=== PATIENT | female | born 1965 | race Hispanic/Latino ===

== ENCOUNTER 2018-06-20 13:26 | Outpatient (CLI) | payer OTHER ==
--- NOTE | 2018-06-20 14:20 | RAD ---
LEFT HIP TWO VIEWS: History: Fall. Left hip injury. FINDINGS: Mild joint space narrowing and osteophytosis. Femoral head contour is maintained. No acute fracture, dislocation, or aggressive osseous erosions. IMPRESSION: Mild osteoarthritis left hip. POS: [facility]
--- NOTE | 2018-06-20 14:23 | RAD ---
AP PELVIS ONE VIEW: History: Fall. Hip pain. FINDINGS/IMPRESSION: Sacral ala and pelvic rings are intact. No displaced fractures. There is articulation of an enlarged left L5 transverse process with the upper sacrum, sometimes a ca use of chronic low back pain on that side. POS: [facility]ET
--- NOTE | 2018-06-20 14:39 | RAD ---
LUMBAR SPINE 3 VIEWS: Date: 06/20/18 HISTORY: Fall with injury to low back. Low back pain. COMPARISON: 01/30/15. FINDINGS: In the AP view, there is a slight curvature of the lumbar spine to the left. Moderate degenerative ch anges are noted with anterior and lateral osteophytes from the lumbar vertebra. These are most promin ent laterally on the right at L1-2. On the lateral view, the lumbar vertebra maintain height. Slight posterolisthesis at L2-3 and L3-4 again noted, stable from the prior exam. Minimal anterolisthesis at L5-S1 is stable. Disc spaces are maintained and appear stable in appearance. There is facet hypertro phy at L3-4, L4-5, and L5-S1. 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 IMPRESSION: There are degenerative changes of the lumbar spine as described, which do not appear significantly ch anged from the prior exam. The osteophytes may be minimally more prominent today. 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 POS: [facility]
== END 2018-06-20 13:27 | disposition home or self-care (01) ==
LOC: MADRAD 13:26
PROVIDERS: ATTEND Family Medicine
DX: M25.552 Pain in left hip (principal); M54.5 Low back pain; M47.896 Other spondylosis, lumbar region; M25.78 Osteophyte, vertebrae; M16.12 Unilateral primary osteoarthritis, left hip; W19.XXXA Unspecified fall, initial encounter
CPT/HCPCS: 72100; 72170

== ENCOUNTER 2021-05-20 13:27 | Emergency (ER) | payer OTHER ==
[2021-05-20] MEDS ORDERED: Boostrix 0.5 ML (Tdap) VIAL ONE (13:44)
[2021-05-21 00:38] LABS: HIV (1/2) Antibody/Antigen Non-Reactive (NonReactive); HIV 1/2 INDEX 0.09 S/CO (<1.00); Hep C IgG Ab Non-Reactive (NonReactive); Hep C Index 0.06 S/CO (0-0.79)
[2021-05-21 00:45] LABS: HBSAB Concentration 56.02 mIU/mL; Hep B Surf AB Reactive (NonReactive)
== END 2021-05-20 13:55 | disposition home or self-care (01) ==
LOC: MADERS 13:27
DX: Z77.21 Contact with and (suspected) exposure to potentially hazardous body fluids (principal); J45.909 Unspecified asthma, uncomplicated; I10 Essential (primary) hypertension
CPT/HCPCS: 36415; 86706; 86803; 87389; 90471; 90715

== ENCOUNTER 2021-07-06 05:21 | Outpatient (CLI) | payer OTHER ==
[2021-07-06 06:28] LABS: SARS-CoV-2 NAA Rapid Test Not Detected (NotDetected)
== END 2021-07-06 05:22 | disposition home or self-care (01) ==
LOC: MADLAB 05:21
PROVIDERS: ATTEND Family Medicine
DX: Z20.822 Contact with and (suspected) exposure to COVID-19 (principal)
CPT/HCPCS: U0002

== ENCOUNTER 2021-07-08 00:32 | Inpatient (IN) | payer OTHER ==
[2021-07-08] MEDS ORDERED: methylPREDNISolone Sod Succ/PF 125 MG/2 ML VIAL ONE (01:16)
[2021-07-08 01:21] LABS: #Basophils 0.1 thou/uL (0.0-0.2); #Eosinphils 0.4 thou/uL (0.0-0.7); #Lymphocytes 1.6 thou/uL (1.20-3.40); #Monocytes 0.6 thou/uL (0.11-0.59); #Neutrophils 10.4 thou/uL (1.40-6.50); %Basophils 0.6 % (0.0-1.0); %Eosinophils 2.8 % (0.0-10.0); %Monocytes 4.5 % (0.0-10.0); %Neutrophils 80.1 % (42.0-75.0); Hemoglobin 13.3 g/dL (12.0-16.0); Mean Corpuscular HGB CONC 31.3 g/dL (32.0-36.0); Mean Corpuscular Hemoglobin 29.2 pg (27.0-31.0); Mean Corpuscular Volume 93.3 fL (78.0-98.0); Mean Platelet Volume 7.5 fL (7.4-10.4); Platelet Count 302 thou/uL (130-400); RBC Distribution Width 11.2 % (11.5-14.5); Red Blood Cell (RBC) Count 4.57 mill/uL (4.20-5.40)
[2021-07-08 02:29] LABS: Bilirubin Negative (Negative); Blood, Urine Trace (Negative); Clarity Clear (Clear); Glucose, Urine (Dipstick) Negative (Negative); Ketone, Urine Negative (Negative); Leukocyte Negative (Negative); Nitrite Negative (Negative); Protein, Urine (Dipstick) Negative (Neg-Trace); Urobilinogen 0.2 mg/dL (Less than 2); pH, Urine 6.5 (5.0-9.0)
[2021-07-08] MEDS ORDERED: Magnesium 2 GM/50 ML BAG (IN WATER) ONE (03:11)
[2021-07-08 03:15] LABS: RBC/HPF None Seen HPF (0-3); Squamous Epithelial 0-3 HPF (0-3); WBC/HPF None Seen HPF (0-3)
[2021-07-08 03:16] LABS: Bacteria/HPF None Seen HPF (None Seen)
[2021-07-08 03:32] LABS: ALT (SGPT) 32 U/L (8-55); AST (SGOT) 18 U/L (5-34); Albumin 4.1 g/dL (3.5-5.0); Alkaline Phosphatase 162 U/L (40-110); Anion Gap 14 mmol/L (10-20); BUN (Urea Nitrogen) 14 mg/dL (9.8-20.1); Bilirubin, Total 0.2 mg/dL (0.2-1.2); Calc. Creatinine Clearance 0 mL/min (70-130); Calcium 9.9 mg/dL (7.8-10.44); Carbon Dioxide 27 mmol/L (22-29); Chloride 103 mmol/L (98-107); Globulin 2.6 g/dL (2.4-3.5); Glucose 114 mg/dL (70-105); Potassium 3.4 mmol/L (3.5-5.1); Protein, Total 6.7 g/dL (6.0-8.3); Sodium 141 mmol/L (136-145)
[2021-07-08] MEDS ORDERED: cefTRIAXone\\ROCEPHIN 2 GM VIAL ONE (03:45)
[2021-07-08] MEDS ORDERED: Sodium Chloride 0.9% 100 ML ONE (03:45)
[2021-07-08] MEDS ORDERED: Sodium Chloride 0.9% 250 ML 250 ML ONE (04:02)
[2021-07-08] MEDS ORDERED: Azithromycin 500 MG VIAL ONE (04:02)
[2021-07-08 04:23] LABS: SARS-CoV-2 NAA Rapid Test Not Detected (NotDetected)
[2021-07-08] MEDS ORDERED: Enoxaparin Sodium 40 MG/0.4 ML SYRINGE ONE (04:40)
[2021-07-08] MEDS ORDERED: Oxymetazoline HCl 0.05% (30 ML BOT) ONE (05:29)
[2021-07-08] MEDS ORDERED: Albuterol Sulfate 2.5 mg/3 ml Neb ONE (05:29)
[2021-07-08 06:14] VITALS: BMI 39.9
[2021-07-08] MEDS ORDERED: Acetaminophen 325 MG TAB PO PRN (07:08)
[2021-07-08] MEDS ORDERED: Ondansetron ODT 4 MG TAB PO PRN (07:08)
[2021-07-08] MEDS ORDERED: Calcium Carbonate 500 MG ChewTAB PO PRN (07:09)
[2021-07-08] MEDS ORDERED: Non-Formulary Item 1 EACH (Albuterol Sulfate [Proair Hfa] 8.5 GM Hfa.Aer.Ad) INH PRN (07:28)
[2021-07-08] MEDS ORDERED: Albuterol 200 PUFF (6.7GM INHALER) INH PRN (07:37)
[2021-07-08] MEDS: buPROPion 75 MG TAB PO SCH (08:23)
[2021-07-08] MEDS: Enoxaparin Sodium 40 MG/0.4 ML SYRINGE SC SCH (08:23)
[2021-07-08] MEDS: Hydrochlorothiazide 25 MG TAB PO SCH (08:24)
[2021-07-08] MEDS: Acetaminophen/Codeine 30-300mg Tablet PO PRN ×2 (08:25→20:08)
[2021-07-08] MEDS: Benzonatate 100 MG CAP PO PRN ×2 (08:25→19:16)
[2021-07-08] MEDS: Loratadine 10 MG TAB PO SCH (08:26)
[2021-07-08] MEDS: ALPRAZolam 0.5 MG TAB PO PRN (08:27)
[2021-07-08] MEDS: Losartan Potassium 50 MG TAB PO SCH (08:27)
[2021-07-08] MEDS: Oxymetazoline HCl 0.05% (30 ML BOT) NS SCH ×2 (08:28→20:05)
[2021-07-08] MEDS ORDERED: Non-Formulary Item 1 EACH (Loratadine [Claritin] 10 MG Capsule) PO SCH (09:00)
[2021-07-08] MEDS ORDERED: methylPREDNISolone Sod Succ/PF 125 MG/2 ML VIAL IVP SCH (12:00)
[2021-07-08] MEDS: Acetaminophen 500 MG TAB PO PRN (15:07)
[2021-07-08] MEDS: predniSONE 20 MG TAB PO SCH (17:22)
[2021-07-08] MEDS: Montelukast Sodium 10 mg Tablet PO SCH (20:03)
[2021-07-08] MEDS: traZODone HCl 50 MG TAB PO SCH (20:04)
[2021-07-08] MEDS ORDERED: traZODone HCl 50 MG TAB PO SCH (21:00)
[2021-07-09] MEDS ORDERED: Azithromycin 500 MG in Sodium Chloride 0.9% 250 ML 250 ML IVPB SCH (05:00)
[2021-07-09 05:39] LABS: Anion Gap 11 mmol/L (10-20); BUN (Urea Nitrogen) 16 mg/dL (9.8-20.1); Calc. Creatinine Clearance 152 mL/min (70-130); Calcium 9.8 mg/dL (7.8-10.44); Carbon Dioxide 25 mmol/L (22-29); Chloride 107 mmol/L (98-107); Glucose 122 mg/dL (70-105); Potassium 4.3 mmol/L (3.5-5.1); Sodium 139 mmol/L (136-145)
[2021-07-09] MEDS: Albuterol Sulfate 2.5 mg/3 ml Neb NEB PRN (05:52)
[2021-07-09] MEDS ORDERED: cefTRIAXone\\ROCEPHIN 1 GM in Sodium Chloride 0.9% 100 ML IVPB SCH (06:00)
[2021-07-09] MEDS: Benzonatate 100 MG CAP PO PRN ×2 (06:29→20:45)
[2021-07-09] MEDS: Hydrochlorothiazide 25 MG TAB PO SCH (08:24)
[2021-07-09] MEDS: Loratadine 10 MG TAB PO SCH (08:24)
[2021-07-09] MEDS: Losartan Potassium 50 MG TAB PO SCH (08:24)
[2021-07-09] MEDS: Azithromycin 250 MG TAB PO SCH (08:24)
[2021-07-09] MEDS: predniSONE 20 MG TAB PO SCH ×2 (08:24→17:24)
[2021-07-09] MEDS: buPROPion 75 MG TAB PO SCH (08:24)
[2021-07-09] MEDS: Enoxaparin Sodium 40 MG/0.4 ML SYRINGE SC SCH (08:24)
[2021-07-09] MEDS: Oxymetazoline HCl 0.05% (30 ML BOT) NS SCH ×2 (08:25→20:48)
[2021-07-09] MEDS: Acetaminophen 500 MG TAB PO PRN ×2 (12:13→20:42)
[2021-07-09] MEDS: traZODone HCl 50 MG TAB PO SCH (20:43)
[2021-07-09] MEDS: Montelukast Sodium 10 mg Tablet PO SCH (20:45)
[2021-07-09] MEDS: ALPRAZolam 0.5 MG TAB PO PRN (20:46)
[2021-07-10] MEDS: predniSONE 20 MG TAB PO SCH ×2 (08:59→17:15)
[2021-07-10] MEDS ORDERED: guaiFENesin/DM ER PO SCH (09:00)
[2021-07-10] MEDS: Losartan Potassium 50 MG TAB PO SCH (09:00)
[2021-07-10] MEDS: Azithromycin 250 MG TAB PO SCH (09:00)
[2021-07-10] MEDS: buPROPion 75 MG TAB PO SCH (09:00)
[2021-07-10] MEDS: Hydrochlorothiazide 25 MG TAB PO SCH (09:00)
[2021-07-10] MEDS: Loratadine 10 MG TAB PO SCH (09:00)
[2021-07-10] MEDS: Acetaminophen 500 MG TAB PO PRN (09:00)
[2021-07-10] MEDS: Oxymetazoline HCl 0.05% (30 ML BOT) NS SCH (09:01)
[2021-07-10] MEDS: Enoxaparin Sodium 40 MG/0.4 ML SYRINGE SC SCH (09:02)
[2021-07-10] MEDS: Albuterol Sulfate 2.5 mg/3 ml Neb NEB PRN (10:03)
[2021-07-10] MEDS: Benzonatate 100 MG CAP PO PRN (11:25)
[2021-07-10] MEDS: ALPRAZolam 0.5 MG TAB PO PRN (12:59)
[2021-07-10 13:47] LABS: Hemoglobin 15.3 g/dL (12.0-16.0); MDiff Complete? YES; Manual Diff?? YES; Mean Corpuscular HGB CONC 32.1 g/dL (32.0-36.0); Mean Corpuscular Hemoglobin 30.2 pg (27.0-31.0); Mean Platelet Volume 7.1 fL (7.4-10.4); Platelet Count 372 thou/uL (130-400); RBC Distribution Width 11.2 % (11.5-14.5); Red Blood Cell (RBC) Count 5.08 mill/uL (4.20-5.40); White Blood Cell (WBC) Count 15.3 thou/uL (4.8-10.8)
[2021-07-10 13:48] LABS: Anisocytosis SLIGHT = 6-15 cells (100X) (0-5/hpf); Band 3 % (5-11); Lymphocytes 12 % (21-51); Monocytes 5 % (0-10); Neutrophil 80 % (42-75); Platelet Morphology Comment Appears Adequate
[2021-07-10 13:49] LABS: ALT (SGPT) 36 U/L (8-55); AST (SGOT) 19 U/L (5-34); Albumin 4.3 g/dL (3.5-5.0); Alkaline Phosphatase 141 U/L (40-110); Anion Gap 16 mmol/L (10-20); BUN (Urea Nitrogen) 19 mg/dL (9.8-20.1); Bilirubin, Total 0.4 mg/dL (0.2-1.2); CK (CPK) 128 U/L (29-168); Calc. Creatinine Clearance 123 mL/min (70-130); Calcium 9.9 mg/dL (7.8-10.44); Carbon Dioxide 24 mmol/L (22-29); Chloride 102 mmol/L (98-107); Globulin 3.1 g/dL (2.4-3.5); Glucose 171 mg/dL (70-105); Protein, Total 7.4 g/dL (6.0-8.3); Sodium 138 mmol/L (136-145)
[2021-07-10 16:31] VITALS: BP 128/85; TEMP 98.3
== END 2021-07-10 18:00 | disposition home or self-care (01) | DRG 202 ==
LOC: MADERS 00:32 → MADMS 05:22 → UNDOADMIN 05:22
PROVIDERS: ADMIT Family Medicine; ATTEND Family Medicine
DX: J45.901 Unspecified asthma with (acute) exacerbation (principal); J98.11 Atelectasis; R07.81 Pleurodynia; F41.9 Anxiety disorder, unspecified; I10 Essential (primary) hypertension; F32.9 Major depressive disorder, single episode, unspecified; K21.9 Gastro-esophageal reflux disease without esophagitis; G47.00 Insomnia, unspecified; J30.2 Other seasonal allergic rhinitis; R09.02 Hypoxemia; E66.9 Obesity, unspecified; Z20.822 Contact with and (suspected) exposure to COVID-19; E87.6 Hypokalemia; Z68.39 Body mass index [BMI] 39.0-39.9, adult; Z88.1 Allergy status to other antibiotic agents; Z88.5 Allergy status to narcotic agent; Z91.041 Radiographic dye allergy status; Z79.51 Long term (current) use of inhaled steroids; Z79.899 Other long term (current) drug therapy; Z90.49 Acquired absence of other specified parts of digestive tract; Z88.4 Allergy status to anesthetic agent; Z90.710 Acquired absence of both cervix and uterus; Z98.84 Bariatric surgery status
CPT/HCPCS: 36415; 71045; 71046; 80048; 80053; 81003; 81015; 82550; 83605; 83880; 84484; 85025; 85379; 87040; 87804; 93005; 94760; J0456; J0696; J1650; J2930; J3475; J3490; J7050; J7512; J7611; J7620; U0002

== ENCOUNTER 2021-11-25 19:00 | Outpatient (CLI) | payer BC ==
[2021-11-25 21:16] LABS: SARS-CoV-2 NAA Rapid Test DETECTED (NotDetected)
== END 2021-11-25 19:01 | disposition home or self-care (01) ==
LOC: MADLAB 19:00
PROVIDERS: ATTEND Family Medicine
DX: U07.1 COVID-19 (principal)
CPT/HCPCS: U0002

== ENCOUNTER 2022-10-02 09:49 | Emergency (ER) | payer BC ==
[2022-10-02] MEDS ORDERED: predniSONE 20 MG TAB ONE (11:12)
[2022-10-02] MEDS ORDERED: Ipratropium Bromide 2.5 ml Neb ONE (11:59)
[2022-10-02] MEDS ORDERED: Albuterol Sulfate 2.5 mg/0.5 ml Neb ONE (11:59)
== END 2022-10-02 13:00 | disposition home or self-care (01) ==
LOC: MADERS 09:49
DX: J45.901 Unspecified asthma with (acute) exacerbation (principal); I10 Essential (primary) hypertension; K21.9 Gastro-esophageal reflux disease without esophagitis; Z79.899 Other long term (current) drug therapy; Z20.822 Contact with and (suspected) exposure to COVID-19
CPT/HCPCS: 71045; 87804; J7512; J7611; J7620; U0003; U0005

== ENCOUNTER 2023-07-09 18:21 | Emergency (ER) | payer BC ==
[2023-07-09] MEDS ORDERED: Ipratropium/Albuterol 3 ML NEB ONE ×2 (19:20→20:46)
[2023-07-09] MEDS ORDERED: methylPREDNISolone Sod Succ/PF 125 MG/2 ML VIAL ONE (19:20)
[2023-07-09 19:43] LABS: #Basophils 0.1 thou/uL (0.0-0.2); #Eosinphils 0.5 thou/uL (0.0-0.7); #Lymphocytes 1.2 thou/uL (1.20-3.40); #Monocytes 0.5 thou/uL (0.11-0.59); #Neutrophils 8.5 thou/uL (1.40-6.50); %Eosinophils 4.2 % (0.0-10.0); %Lymphocytes 11.2 % (21.0-51.0); %Monocytes 4.4 % (0.0-10.0); %Neutrophils 79.3 % (42.0-75.0); Hematocrit 44.6 % (36.0-47.0); Hemoglobin 14.7 g/dL (12.0-16.0); Mean Corpuscular HGB CONC 32.9 g/dL (32.0-36.0); Mean Corpuscular Volume 91.2 fl (78.0-98.0); Mean Platelet Volume 8.1 fL (7.4-10.4); Platelet Count 324 10x3/uL (130-400); RBC Distribution Width 12.5 % (11.5-14.5); Red Blood Cell (RBC) Count 4.89 mill/uL (4.20-5.40); White Blood Cell (WBC) Count 10.7 10x3/uL (4.8-10.8)
[2023-07-09 19:58] LABS: ALT (SGPT) 19 U/L (8-55); AST (SGOT) 15 U/L (5-34); Albumin 4.3 g/dL (3.5-5.0); Alkaline Phosphatase 182 U/L (40-110); Anion Gap 15 mmol/L (10-20); BUN (Urea Nitrogen) 16 mg/dL (9.8-20.1); Bilirubin, Total 0.3 mg/dL (0.2-1.2); Calc. Creatinine Clearance 0 mL/min (70-130); Calcium 9.6 mg/dL (7.8-10.44); Carbon Dioxide 25 mmol/L (22-29); Chloride 105 mmol/L (98-107); Estimated GFR 93; Globulin 3.1 g/dL (2.4-3.5); Glucose 104 mg/dL (70-105); Potassium 3.7 mmol/L (3.5-5.1); Protein, Total 7.4 g/dL (6.0-8.3); Sodium 141 mmol/L (136-145)
[2023-07-09 19:59] LABS: Troponin I Less than 0.010 ng/mL (< 0.028)
[2023-07-09] MEDS ORDERED: Budesonide 0.5 MG/2 ML NEB NEB SCH (21:00)
[2023-07-09] MEDS ORDERED: Guaifenesin DM 100-10/5 ML UDCUP ONE (21:39)
[2023-07-09] MEDS ORDERED: Sodium Chloride 0.9% 0 ML ONE (21:39)
[2023-07-09] MEDS ORDERED: Azithromycin 500 MG VIAL ONE (21:39)
[2023-07-09] MEDS ORDERED: Sodium Chloride 0.9% 250 ML 250 ML ONE (22:02)
[2023-07-09] MEDS ORDERED: Sodium Chloride 0.9% 1,000 ML ONE (22:08)
== END 2023-07-09 22:45 | disposition home or self-care (01) ==
LOC: MADERS 18:21
DX: J45.901 Unspecified asthma with (acute) exacerbation (principal); J20.9 Acute bronchitis, unspecified; K21.9 Gastro-esophageal reflux disease without esophagitis; I10 Essential (primary) hypertension; Z79.899 Other long term (current) drug therapy
CPT/HCPCS: 71046; 80053; 84484; 85025; 87070; 87205; 93005; 94640; 94760; 96361; 96365; 96375; J0456; J2930; J3490; J7050; J7620; J7626

== ENCOUNTER 2025-07-13 06:21 | Emergency (ER) | payer BC ==
[2025-07-13] MEDS ORDERED: Albuterol 2.5 MG (0.5 mL) NEB ONE ×2 (06:34→07:17)
[2025-07-13] MEDS ORDERED: Ipratropium Bromide 2.5 ml Neb ONE (06:34)
[2025-07-13] MEDS ORDERED: Albuterol 2.5 MG (3 mL) NEB ONE (06:34)
[2025-07-13] MEDS ORDERED: Magnesium 2 GM/50 ML BAG (IN WATER) ONE (06:35)
[2025-07-13 06:45] LABS: #Basophils 0.1 thou/uL (0.0-0.2); #Eosinophils 0.5 thou/uL (0.0-0.7); #Lymphocytes 2.0 thou/uL (1.20-3.40); #Monocytes 0.4 thou/uL (0.11-0.59); #Neutrophils 8.0 thou/uL (1.40-6.50); %Basophils 0.9 % (0.0-1.0); %Eosinophils 4.4 % (0.0-10.0); %Lymphocytes 18.4 % (21.0-51.0); %Monocytes 3.4 % (0.0-10.0); %Neutrophils 73.0 % (42.0-75.0); Hematocrit 46.2 % (36.0-47.0); Hemoglobin 15.1 g/dL (12.0-16.0); Mean Corpuscular Hemoglobin 29.8 pg (27.0-31.0); Mean Corpuscular Volume 91.4 fl (78.0-98.0); Platelet Count 375 10x3/uL (130-400); Red Blood Cell (RBC) Count 5.05 mill/uL (4.20-5.40); White Blood Cell (WBC) Count 10.9 10x3/uL (4.8-10.8)
[2025-07-13 07:03] LABS: Bicarbonate (HCO3v) 26.5 mmol/L (22.0-28.0); CO2 Tension (PvCO2) 45.9 mmHg (42.0-51.0); Calcium, Ionized 1.19 mmol/L (1.15-1.33); Chloride 103 mmol/L (98-107); Hemoglobin - Calc 15.0 g/dL (12.0-16.0); Potassium 4.1 mmol/L (3.5-5.1); Sodium 142 mmol/L (138-145); T. Carbon Dioxide 27.9 mmol/L (22.0-28.0); vO2 Saturation-calc 96.5 % (60.0-85.0)
[2025-07-13 07:06] LABS: ALT (SGPT) 19 U/L (Less than 34); AST (SGOT) 15 U/L (11-34); Albumin 3.9 g/dL (3.1-4.5); Alkaline Phosphatase 136 U/L (40-110); Anion Gap 16 mmol/L (10-20); BUN (Urea Nitrogen) 18 mg/dL (9.8-20.1); Bilirubin, Total 0.6 mg/dL (0.3-1.2); Calc. Creatinine Clearance 0 mL/min (70-130); Calcium 8.9 mg/dL (7.8-10.44); Carbon Dioxide 24 mmol/L (23-31); Chloride 105 mmol/L (98-107); Glucose 128 mg/dL (80-115); Potassium 4.3 mmol/L (3.5-5.1); Sodium 141 mmol/L (136-145)
[2025-07-13 07:22] LABS: Globulin 2.8 g/dL (2.4-3.5)
== END 2025-07-13 07:37 | disposition home or self-care (01) ==
LOC: MADERS 06:21
DX: J45.901 Unspecified asthma with (acute) exacerbation (principal); I10 Essential (primary) hypertension; Z79.899 Other long term (current) drug therapy; Z79.51 Long term (current) use of inhaled steroids
CPT/HCPCS: 80053; 82330; 82803; 85025; 96374; 96375; J2919; J3475; J7611; J7626; J7644